=== PATIENT | male | born 2000 | race Caucasian/White ===

== ENCOUNTER → 2020-04-15 | Outpatient (CLI) | payer MEDICAID, SELFPAY | END | disposition home or self-care (01) | LOC: LABSPEC 10:48 | PROVIDERS: Referring Provider Otolaryngology; Visit Provider Otolaryngology | DX: J02.9 Acute pharyngitis, unspecified (principal) | CPT/HCPCS: 87070; 87077 ==

== ENCOUNTER 2023-01-02 12:31 | Emergency (ER) | payer OTHER, MEDICAID, SELFPAY ==
[2023-01-02 12:32] VITALS: BP 141/84; PULSE 96; RESP 18; TEMP 37; O2SAT 100; BMI 32.2
[2023-01-02 12:34] VITALS: BP 141/84; PULSE 96; RESP 18; TEMP 37; O2SAT 100
--- NOTE | 2023-01-02 12:42 | EDS_ITS ---
HPI History of Present Illness Chief Complaint: [facility] Th[facility] Medical History Hypertension Seasonal allergies Home Medications NK 02/08/21 [History Last Taken Unknown] Allergy/AdvReac Type Severity Reaction Status Date / Time No Known Allergies Allergy Verified 01/02/23 12:32 Family History Sister Asthma Grandmother Asthma Arthritis Breast cancer Cancer Severe allergy Grandfather CVA (cerebral vascular accident) Uncle Thyroid disorder Other Cerebral aneurysm Surgical History (Updated 02/14/22 @ 08:33 by Liliana Stone) No history of previous surgery Social History (Updated 02/14/22 @ 08:18 by Liliana Stone) Smoking Status: Never smoker Smokeless tobacco user: chewing tobacco Electronic Cigarette Use: not used second hand exposure: No alcohol intake: current alcohol intake frequency: a few times a week substance use type: does not use what type of physical activity do you participate in: weight training frequency: daily jackson/gnosticism: [employer] seatbelt use: sometimes EXAM Physical Exam Const Vital Signs: 01/02/23 12:32 Temperature 98.6 F Temperature Source Temporal Pulse Rate 96 Respiratory Rate 18 Blood Pressure 141/84 H Blood Pressure Mean 103 Pulse Ox 100 Oxygen Delivery Method Room Air [facility] [place] Narrative Medical decision making narrative: HISTORY OF PRESENT ILLNESS: 22-year-old male here with concern for sore throat REVIEW OF SYSTEMS: Pertinent positives: Pertinent negatives: PHYSICAL EXAM: Nursing triage notes reviewed, Vital signs reviewed Constitutional: please see mdm HENT: MMM, no evidence of dental abscess, no submandibular edema or induration, no tonsillar exudates or erythema, uvula midline, patient was controlling secretions, no drooling, no trimus, no dysphonia Eyes: Pupils equal round and reactive to light, Extraocular muscles intact Neck: No stridor, no JVD, full neck ROM Lungs: Clear to auscultation, No wheezing or rales. No increased work of breathing, no conversational dyspnea, no accessory muscle use, no nasal flaring. No respiratory distress noted Heart: Regular rate and rhythm, No murmurs, No rubs and No gallops, 2+ distal pulses (radial, femoral, posterior tibial) in all extremities MEDICAL DECISION MAKING: Chief Complaint: Dental pain External records reviewed: MDM Narrative: The patient was hemodynamically stable, afebrile, nontoxic-appearing. I considered the following differential diagnosis: Dental abscess, ANUG, Ludewig's angina, RPA, PIECE DYER, dental caries, gingivitis Factors affecting care: Social determinants of health: History obtained from others: Shared decision making: I will have a discussion with the patient and or visitors regarding risk/benefits of further testing or admission. They will be made aware of of the risk/benefits inherent in this decision they will be given the opportunity to voice understanding. Consults: None Discharge Plan Triage Chief Complaint: Sore Throat ED Provider: Rios Moise Dx/Rx/DC Orders Prescriptions: No Action NK Primary Care Provider: Care Physician,No Primary Referrals: Care Physician,No Primary [Primary Care Provider] -
--- NOTE | 2023-01-02 12:42 | EX.ED.DYSGE1 ---
HPI History of Present Illness Chief Complaint: Sore Throat [facility] Medical History Hypertension Seasonal allergies Home Medications amoxicillin 875 mg-potassium clavulanate 125 mg tablet 1 tab PO BID #14 tabs 01/02/23 [Rx Last Taken Unknown] Allergy/AdvReac Type Severity Reaction Status Date / Time No Known Allergies Allergy Verified 01/02/23 12:32 Family History Sister Asthma Grandmother Asthma Arthritis Breast cancer Cancer Severe allergy Grandfather CVA (cerebral vascular accident) Uncle Thyroid disorder Other Cerebral aneurysm Surgical History No history of previous surgery Social History (Updated 02/14/22 @ 08:18 by Liliana Stone) Smoking Status: Current every day smoker tobacco type: smokeless tobacco Smokeless tobacco user: chewing tobacco Electronic Cigarette Use: not used second hand exposure: No alcohol intake: current alcohol intake frequency: a few times a week substance use type: does not use what type of physical activity do you participate in: weight training frequency: daily jackson/hinduism: [employer] seatbelt use: sometimes EXAM Physical Exam Const Vital Signs: 01/02/23 12:32 Temperature 98.6 F Temperature Source Temporal Pulse Rate 96 Respiratory Rate 18 Blood Pressure 141/84 H Blood Pressure Mean 103 Pulse Ox 100 Oxygen Delivery Method Room Air [facility] MDM MDM Narrative Medical decision making narrative: HISTORY OF PRESENT ILLNESS: 22-year-old male here with concern for sore throat. Notes he was admitted in [place] during the week of December 23. He is admitted for 4 days received IV antibiotics. States no other testing was done including no imaging. States at that point he was discharged. He states last night he began to have worsening pain difficulty swallowing. Denies any drooling, change in his voice or difficulty opening his jaw. Denies any neck stiffness. Denies any immunocompromising state such as diabetes or recent cancer treatment. REVIEW OF SYSTEMS: Pertinent positives: Sore throat Pertinent negatives: Fever, vomiting, shortness of breath PHYSICAL EXAM: Nursing triage notes reviewed, Vital signs reviewed Constitutional: please see mdm HENT: MMM, bilateral tonsils are edematous, right tonsil is erythematous with white exudates, there is no trismus no drooling no dysphonia patient was controlling secretions and speaking in full sentences. Uvula is midline no submandibular edema or tenderness. Eyes: Pupils equal round and reactive to light, Extraocular muscles intact Neck: No stridor, no JVD, full neck ROM Lungs: Clear to auscultation, No wheezing or rales. No increased work of breathing, no conversational dyspnea, no accessory muscle use, no nasal flaring. No respiratory distress noted Heart: Regular rate and rhythm, No murmurs, No rubs and No gallops, 2+ distal pulses (radial, femoral, posterior tibial) in all extremities MEDICAL DECISION MAKING: Chief Complaint: Dental pain External records reviewed: Attempted to review the patient's records however there is no records in clinic thank given he was admitted in [place]. [facility] Narrative: The patient was hemodynamically stable, afebrile, nontoxic-appearing. I considered the following differential diagnosis: Dental abscess, ANUG, Ludewig's angina, RPA, ECHO TECH, dental caries, gingivitis Given multiple visits and concern for peritonsillar abscess I did obtain a image of the patient's head and neck. I treated him empirically with IV Unasyn, Decadron and Toradol for antimicrobial effect and anti-inflammatory effect. Obtained a BMP to assess his kidney function and obtained a CTA of the neck with contrast to rule out any deep neck space infection. CBC leukocytosis suggestive of systemic inflammation, no anemia or thrombocytopenia noted BMP without evidence of significant electrolyte abnormalities, no anion gap, no acute kidney injury. The neck shows evidence of a small approximate 3 cc right tonsillar abscess. We do not have a ear nose no doctor on-call. Patient was offered transfer to the nearest facility with ENT available however he refused. Patient has close ENT follow-up tomorrow morning. He was given oral Augmentin and told to follow-up with ENT. Return precautions were discussed. Factors affecting care: None Social determinants of health: None History obtained from others: Patient's mother Shared decision making: I will have a discussion with the patient and or visitors regarding risk/benefits of further testing or admission. They will be made aware of of the risk/benefits inherent in this decision they will be given the opportunity to voice understanding. Consults: None Impression: 1. Tonsillar abscess 2. Leukocytosis Disposition: Discharge Lab Data Labs: Laboratory Results - last 24 hr 01/02/23 13:11 WBC 16.2 H RBC 4.89 Hgb 14.0 Hct 42.2 MCV 86.3 MCH 28.6 MCHC 33.2 RDW Std Deviation 39.0 RDW Coeff of Taylor 12.4 Plt Count 255 MPV 9.8 Immature Gran % (Auto) 0.400 Neut % (Auto) 78.0 H Lymph % (Auto) 14.2 L [place] % (Auto) 6.5 Eos % (Auto) 0.6 Baso % (Auto) 0.3 Absolute Neuts (auto) 12.6 H Absolute Lymphs (auto) 2.30 Nucleated RBC % 0 Sodium 138 Potassium 3.8 Chloride 103 Carbon Dioxide 32.0 Anion Gap 3 L BUN 13 Creatinine 0.88 Estim Creat Clear Calc 154.70 Est GFR (MDRD) Af Amer 137 Est GFR (MDRD) Non-Af 114 BUN/Creatinine Ratio 14.9 Glucose 92 Calcium 8.9 Radiography Diagnostic Testing: Clinical Impression(s) from Imaging Studies Soft Tissue Neck CT 01/02/23 12:54 IMPRESSION: Enlargement of the tonsils, right greater than left consistent with tonsillitis. Additionally within the right tonsil is a low-density likely abscess measuring 1.13 x 0.7 x 1.08 cm. ENT consultation recommended Electronically Signed: Andrey Simon MD at 14:13 EDT , Discharge Plan Triage Chief Complaint: Sore Throat ED Provider: Rios Moise Dx/Rx/DC Orders Instructions: ED Pharyngitis, Strep (Presumed) Prescriptions: New amoxicillin-pot clavulanate 875-125 mg tablet 1 tab PO BID Qty: 14 0RF Primary Care Provider: Care Physician,No Primary Referrals: Care Physician,No Primary [Primary Care Provider] -
--- NOTE | 2023-01-02 12:54 | CT_ITS ---
STUDY: CT SOFT TISSUE NECK WITH CONTRAST REASON FOR EXAM: Male, 22 years old. right tonsilar swelling RADIATION DOSAGE (If Supplied By Facility): CTDIvol = ( 17.02 ) mGy, DLP = ( 595.46 ) mGycm TECHNIQUE: The patient was scanned in a multi-detector CT scanner. High resolution transaxial imaging was performed following intravenous administration of IV 75mL Isovue-370. Sagittal and coronal images were reconstructed. Individualized dose optimization techniques were used for this CT. COMPARISON: None. FINDINGS: Normal bilateral parotid glands. Normal bilateral banner painter spaces. Normal bilateral parapharyngeal spaces. Normal bilateral carotid spaces. Normal bilateral sublingual and submandibular glands and spaces. Normal visualized nasopharynx. Normal retropharyngeal space. Normal perivertebral space. There is asymmetric enlargement of the tonsils, more pronounced on the right than the left. Additionally, within the right tonsil is a low-density likely abscess measuring 1.13 x 0.87 x 1.08 cm. There is impingement upon the hypopharynx. ENT consultation and direct visualization recommended for further evaluation. The visualized tongue, tongue base and oropharynx are normal. The visualized cervical lymph nodes (levels I-) are within normal size limits, and maintain normal morphology. There is no demonstrated solid or cystic mass lesion. There is no abnormal contrast enhancement. Normal epiglottis, bilateral vallecula and hypopharynx. The pre-epiglottic and paraglottic adipose spaces are normal. Normal visualized bilateral piriform sinuses, aryepiglottic folds, vocal cords, and arytenoid-cricoid articulations. Normal subglottic trachea. Normal bilateral lobes of the thyroid gland. Normal visualized pulmonary apices. Normal visualized paranasal sinuses. Normal visualized cervical spine. CT/Soft Tissue Neck WITH Contrast IMPRESSION: Enlargement of the tonsils, right greater than left consistent with tonsillitis. Additionally within the right tonsil is a low-density likely abscess measuring 1.13 x 0.7 x 1.08 cm. ENT consultation recommended Electronically Signed: Andrey Simon MD at 14:13 EDT ,
[2023-01-02 13:21] LABS: Absolute Neutrophil Count 12.6 X10^3/uL (2.0-7.7); Basophil# 0.05 X10^3/uL; Basophil% 0.3 % (0-1); Eosinophil# 0.09 X10^3/uL; Eosinophils% 0.6 % (0-5); Hematocrit 42.2 % (40-54); Lymphocyte % 14.2 % (19-41); Mean Corp Hgb Conc 33.2 g/dL (32-36); Mean Corpuscular Hgb 28.6 pg (27.0-32.0); Mean Corpuscular Volume 86.3 fL (80-94); Mean Platelet Vol. 9.8 fl (6.2-12.0); Monocyte# 1.06 X10^3/uL; Monocyte% 6.5 % (0-10); NRBC Flagged by Analyzer 0 % (0-5); Neutrophil # 12.63 X10^3/uL (2.7-7.7); Platelet Count 255 K/mm3 (150-450); RBC Distribution Width CV 12.4 % (11.6-14.6); Red Blood Count 4.89 M/mm3 (4.6-6.2); White Blood Count 16.2 K/mm3 (4.4-11.0)
[2023-01-02] MEDS: Ketorolac 15 MG/ML Vial IV (13:25)
[2023-01-02] MEDS: dexAMETHasone 10 MG/ML Vial IV (13:26)
[2023-01-02 13:44] LABS: Anion Gap 3 (5-15); BUN 13 mg/dL (7-18); BUN/Creat Ratio 14.9 RATIO (10-20); Calcium,Total 8.9 mg/dL (8.5-10.1); Chloride 103 mmol/L (98-107); Creatinine, Serum 0.88 mg/dL (0.70-1.30); EST Glomerular Filtration Rate 114 mL/min (>60); Est Glom Filt Rate - Afr Amer 137 mL/min (>60); Glucose 92 mg/dL (74-106); Potassium 3.8 mmol/L (3.5-5.1); Sodium Level 138 mmol/L (136-145)
[2023-01-02] MEDS: Ampicillin/Sulbactam 3 GM in 0.9% Normal Saline (100mL MB+) 100 ML IV (14:24)
[2023-01-02 15:34] VITALS: BP 138/74; PULSE 90; RESP 16; O2SAT 100
== END 2023-01-02 15:38 | disposition home or self-care (01) ==
PROVIDERS: Emergency Provider Emergency Medicine; Visit Provider Emergency Medicine
DX: J36 Peritonsillar abscess (principal)
CPT/HCPCS: 70491; 80048; 85025; 96365; 96375; 99282; Q9967; A4216; J0295